=== PATIENT | female | born 1940 | race Caucasian/White ===

== ENCOUNTER 2017-01-10 08:54 | Emergency (ER) | payer MEDICARE, MEDICAID ==
[2017-01-10 10:35] VITALS: BP 195/99
--- NOTE | 2017-01-10 11:15 | EDM.PDOC ---
ED HPI GENERAL MEDICAL PROBLEM - General Chief Complaint: Neuro Symptoms/Deficits Stated Complaint: [facility] Time Seen by Provider: 01/10/17 09:13 Source of Information: Reports: Patient, Family History Limitations: Reports: Physical Impairment - History of Present Illness INITIAL COMMENTS - FREE TEXT/NARRATIVE: This patient comes in by EMS from a local alf. Today staff noted that her speech is very slurred. They also noted a blood pressure of 250/205. The patient indicates that she has some tingling in her right hand. 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 Today she's not having any weakness on the right. She is able to talk and express herself although her speech is slurred and difficult to understand. She hasn't had anything to eat or drink today. She does have a history of atrial fibrillation but is no longer taking any anticoagulation. She does take aspirin daily. Much of the history is given by her daughter although the patient is able to speak she's just difficult for me to understand. denies Pain Score (Numeric/FACES): 0 - Related Data Allergies Allergy/AdvReac Type Severity Reaction Status Date / Time CHI Inhibitors AdvReac Cannot Verified 01/10/17 09:10 Remember amlodipine AdvReac Cannot Verified 01/10/17 09:10 Remember hydrochlorothiazide AdvReac Cannot Verified 01/10/17 09:10 Remember Home Meds: Home Meds Aspirin [Halfprin] 81 mg PO DAILY 05/31/16 [History] Cholecalciferol (Vitamin D3) [Vitamin D3] 5,000 unit PO DAILY 05/31/16 [History] Cyanocobalamin (Vitamin B-12) [B-12] 1,000 mcg PO DAILY 05/31/16 [History] Dextromethorphan/guaiFENesin [Robitussin DM] 10 ml PO Q4H PRN 05/31/16 [History] Digestive Enzymes Combo No.7 [Superior Digestive Enzyme] 1 cap PO TIDMEALS 05/31 [History] Insulin Glarg,Human.Rec.Analog [Lantus] 12 units SQ BEDTIME 05/31/16 [History] Insulin Glarg,Human.Rec.Analog [Lantus] 24 units SQ DAILY 05/31/16 [History] Multivitamins/Iron/Folic Acid [Cerovite Advanced Formula] 1 tab PO DAILY [History] [place] 3 Fatty Acids 1 cap PO BID 05/31/16 [History] Triple Magnesium Complex 1 tab PO BEDTIME 05/31/16 [History] Ginkgo Biloba 60 mg PO DAILY 01/10/17 [History] Hypromellose [Pure & Gentle Eye Drops] 15 ml OP DAILY 01/10/17 [History] Past Medical History Cardiovascular History: Reports: Afib, High Cholesterol, Hypertension, Other ( See Below) Other Cardiovascular History: cardiomegaly Gastrointestinal History: Reports: GERD, Other (See Below) Other Gastrointestinal History: diarrhea, constipation Genitourinary History: Reports: Urinary Incontinence Musculoskeletal History: Reports: Other (See Below) Other Musculoskeletal History: generalized muscle weakness, low back pain, shoulder pain,left sided paralysis due to stroke Neurological History: Reports: CVA Psychiatric History: Reports: Depression Endocrine/Metabolic History: Reports: Diabetes, Type II - Infectious Disease History Infectious Disease History: Reports: MRSA - Past Surgical History Cardiovascular Surgical History: Reports: None Oncologic Surgical History: Reports: Lumpectomy Social & Family History - Tobacco Use Smoking Status *Q: Never Smoker Second Hand Smoke Exposure: No - Recreational Drug Use Recreational Drug Use: No ED ROS GENERAL - Review of Systems Review Of Systems: See Below Constitutional: Reports: No Symptoms HEENT: Reports: Other Respiratory: Reports: No Symptoms Cardiovascular: Reports: No Symptoms Endocrine: Reports: No Symptoms GI/Abdominal: Reports: No Symptoms : Reports: No Symptoms Musculoskeletal: Reports: Other (Some swelling in her left leg but that is an ongoing problem. Usually her leg is wrapped but it's not wrapped today. She does spend a lot of her time sitting in a chair with her legs hanging down.) Skin: Reports: No Symptoms Neurological: Reports: Paresthesia (Some tingling in her right hand), Pre- Existing Deficit (She has long-standing paralysis of the left arm and leg), Change in Speech (Her speech is slurred today). Denies: Confusion, Dizziness, Headache Psychiatric: Reports: No Symptoms Hematologic/Lymphatic: Reports: No Symptoms Immunologic: Reports: No Symptoms ED EXAM, NEURO - Physical Exam Exam: See Below Exam Limited By: No Limitations General Appearance: Alert, No Apparent Distress, Obese Eye Exam: Bilateral Eye: EOMI, Normal Inspection, PERRL Nose: Normal Inspection Throat/Mouth: Other (She has had dentures. Mouth seems dry.) Head Exam: Atraumatic Respiratory/Chest: No Respiratory Distress, Lungs Clear Cardiovascular: Irregularly Irregular GI/Abdominal: Soft, Non-Tender Neurological: Alert, Normal Mood/Affect, CN II-XII Intact, Other (There is paralysis of the left hand with some contractures. She is able to move the left arm a little bit mostly at the shoulder. She's able to move the left leg slightly and fixed in the left ankle but definitely it's week. This is her normal. She has normal strength in the right upper and lower extremities. Hand shirt closer is strong on the right) Extremities: Other (There is moderate swelling and slight erythema to the left lower leg. It's nontender. This is looks like chronic venous stasis and is nothing unusual for her) Psychiatric: Normal Affect Skin Exam: Warm, Dry (C. extremities) Course - Vital Signs Last Recorded V/S: Last Vital Signs Temp 36.6 C 01/10/17 09:11 Pulse 114 H 01/10/17 10:34 Resp 16 01/10/17 10:34 BP 195/99 H 01/10/17 10:34 Pulse Ox 98 01/10/17 10:34 - Orders/Labs/Meds Orders: Active Orders 24 hr Category Date Time Status Head wo Cont [CT] Stat Exams 01/10/17 09:23 Taken Labs: Laboratory Tests 01/10/17 01/10/17 01/10/17 Range/Units 09:33 09:33 09:33 WBC 8.6 (4.5-11.0) K/uL RBC 5.19 (3.30-5.50) M/uL Hgb 13.6 (12.0-15.0) g/dL Hct 40.9 (36.0-48.0) % MCV 79 L (80-98) fL MCH 26 L (27-31) pg MCHC 33 (32-36) % Plt Count 288 (150-400) K/uL Neut % (Auto) 67 H (36-66) % Lymph % (Auto) 20 L (24-44) % [place] % (Auto) 9 H (2-6) % Eos % (Auto) 3 (2-4) % Baso % (Auto) 1 (0-1) % PT 11.4 (9.5-12.0) sec INR 1.07 (0.80-1.20) Sodium 140 (140-148) mmol/L Potassium 4.3 (3.6-5.2) mmol/L Chloride 105 (100-108) mmol/L Carbon Dioxide 25 (21-32) mmol/L Anion Gap 9.7 (5.0-14.0) mmol/L BUN 22 H D (7-18) mg/dL Creatinine 1.2 H (0.6-1.0) mg/dL Est Cr Clr Drug Dosing 37.01 mL/min Estimated GFR (MDRD) 44 L (>60) Glucose 178 H (74-106) mg/dL Calcium 8.1 L (8.5-10.1) mg/dL Total Bilirubin 0.4 (0.2-1.0) mg/dL AST 17 (15-37) U/L ALT 23 (12-78) U/L Alkaline Phosphatase 61 (46-116) U/L Total Protein 7.5 (6.4-8.2) g/dL Albumin 3.4 (3.4-5.0) g/dL Globulin 4.1 H (2.3-3.5) g/dL Albumin/Globulin Ratio 0.8 L (1.2-2.2) Urine Color Urine Appearance Urine pH (4.5-8.0) Ur Specific [place] (1.008-1.030) Urine Protein (NEGATIVE) mg/dL Urine Glucose (UA) (NEGATIVE) mg/dL Urine Ketones (NEGATIVE) mg/dL Urine Occult Blood (NEGATIVE) Urine Nitrite (NEGATIVE) Urine Bilirubin (NEGATIVE) Urine Urobilinogen (NORMAL) mg/dL Ur Leukocyte Esterase (NEGATIVE) Urine RBC (0-5) Urine WBC (0-5) Ur Epithelial Cells Amorphous Sediment Urine Bacteria Urine Mucus 01/10/17 Range/Units 09:50 WBC (4.5-11.0) K/uL RBC (3.30-5.50) M/uL Hgb (12.0-15.0) g/dL Hct (36.0-48.0) % MCV (80-98) fL MCH (27-31) pg MCHC (32-36) % Plt Count (150-400) K/uL Neut % (Auto) (36-66) % Lymph % (Auto) (24-44) % [place] % (Auto) (2-6) % Eos % (Auto) (2-4) % Baso % (Auto) (0-1) % PT (9.5-12.0) sec INR (0.80-1.20) Sodium (140-148) mmol/L Potassium (3.6-5.2) mmol/L Chloride (100-108) mmol/L Carbon Dioxide (21-32) mmol/L Anion Gap (5.0-14.0) mmol/L BUN (7-18) mg/dL Creatinine (0.6-1.0) mg/dL Est Cr Clr Drug Dosing mL/min Estimated GFR (MDRD) (>60) Glucose (74-106) mg/dL Calcium (8.5-10.1) mg/dL Total Bilirubin (0.2-1.0) mg/dL AST (15-37) U/L ALT (12-78) U/L Alkaline Phosphatase (46-116) U/L Total Protein (6.4-8.2) g/dL Albumin (3.4-5.0) g/dL Globulin (2.3-3.5) g/dL Albumin/Globulin Ratio (1.2-2.2) Urine Color Yellow Urine Appearance Cloudy Urine pH 8.0 (4.5-8.0) Ur Specific [place] 1.010 (1.008-1.030) Urine Protein Negative (NEGATIVE) mg/dL Urine Glucose (UA) Normal (NEGATIVE) mg/dL Urine Ketones Negative (NEGATIVE) mg/dL Urine Occult Blood Moderate (NEGATIVE) Urine Nitrite Negative (NEGATIVE) Urine Bilirubin Negative (NEGATIVE) Urine Urobilinogen Normal (NORMAL) mg/dL Ur Leukocyte Esterase Large (NEGATIVE) Urine RBC 20-30 H (0-5) Urine WBC Packed H (0-5) Ur Epithelial Cells Few Amorphous Sediment Not seen Urine Bacteria Many Urine Mucus Not seen - Radiology Interpretation Free Text/Narrative:: Head CT shows a moderately large amount of diffuse abnormal low density in the right frontal parietal white matter in the mid and upper right cerebral hemisphere with a more focal 5-6 cm area of low density in the right frontal lobe the asymmetry suggests it may be underlying edema and MRI is recommended to further characterize and exclude the possibility of underlying lesions in this region. There is also diffuse moderate confluent patchy low density in in the white matter bilaterally related to small vessel disease and multiple small to moderate size old lacunar infarcts in the cerebral and cerebellar hemispheres. There's mild inflammatory sinus disease. - Re-Assessments/Exams Free Text/Narrative Re-Assessment/Exam: 01/10/17 11:29 director treasurer confirms atrial fibrillation. Blood pressures are noted. 01/10/17 11:33 This patient is able to drink water through a straw without difficulties. She coughs some afterwards but does not choke. She should be able to take oral liquids and nourishment as well as oral medications. The possible need for an MRI was discussed. An MRI can't be obtained today and I don't think there's any reason to send her out for this. This can be followed up with her doctor next week. In the meantime we'll treat her for a urinary tract infection Departure - Departure Time of Disposition: 11:12 Disposition: Home, Self-Care 01 Condition: fair Clinical Impression: Urinary tract infection, Slurring of speech, Paresthesia - Discharge Information Instructions: Urinary Tract Infection, Adult, [id number] Referrals: PCP,None [Primary Care Provider] - Forms: ED Department Discharge Additional Instructions: Take the Cipro 500 mg twice daily for 1 week. Contact her doctor on Thursday about possibly getting an MRI of the brain. She should drink of water. - My Orders Last 24 Hours: My Active Orders 01/10/17 09:23 Head wo Cont [CT] Stat - Assessment/Plan Last 24 Hours: My Active Orders 01/10/17 09:23 Head wo Cont [CT] Stat
== END 2017-01-10 11:45 | disposition home or self-care (01) ==
LOC: JP.ED 08:54
DX: N39.0 Urinary tract infection, site not specified (principal); R47.81 Slurred speech; R20.2 Paresthesia of skin; I48.91 Unspecified atrial fibrillation; I10 Essential (primary) hypertension; E78.00 Pure hypercholesterolemia, unspecified; K21.9 Gastro-esophageal reflux disease without esophagitis; E11.9 Type 2 diabetes mellitus without complications; Z88.8 Allergy status to other drugs, medicaments and biological substances; Z79.82 Long term (current) use of aspirin; Z79.4 Long term (current) use of insulin; Z79.899 Other long term (current) drug therapy; Z86.73 Personal history of transient ischemic attack (TIA), and cerebral infarction without residual deficits; Z98.890 Other specified postprocedural states
CPT/HCPCS: 36415; 70450; 80053; 81001; 85025; 85610; 99283; 99284-25